=== PATIENT | female | born 1995 | race Caucasian/White ===

== ENCOUNTER → 2024-04-10 11:05 | Outpatient (REF) | payer BC, SELFPAY ==
[2024-04-10 13:07] LABS: % Basophils 0.9 % (0-2); % Eosinophils 0.4 % (0-6); % Immature Granulocytes 0.6 % (0-0.5); % Lymphocytes 33.3 % (20.5-51.1); % Monocytes 7.8 % (1.7-9.3); Absolute Basophils 0.1 10^3/uL (0-0.2); Absolute Lymphocytes 2.3 10^3/uL (1.2-3.4); Absolute Monocytes 0.5 10^3/uL (0.1-0.6); Absolute Neutrophils 3.9 10^3/uL (1.4-6.5); Hematocrit 41.4 % (37.0-47.0); Hemoglobin 13.9 g/dL (12.0-16.0); Mean Corp Hgb Conc. 33.6 g/dL (33.0-37.0); Mean Corpuscular Hgb 29.8 pg (27.0-31.0); Mean Corpuscular Volume 88.7 fL (81.0-99.0); Mean Platelet Volume 10.1 fL (7.4-10.4); Nucleated Red Blood Cells % 0 %; Platelet Count 375 10^3/uL (130-400); Red Blood Cell Count 4.67 10^6/uL (4.20-5.40); Red Cell Dist. Width 12.4 % (11.5-14.5); White Blood Cell Count 6.9 10^3/uL (4.8-10.8)
[2024-04-10 13:16] LABS: ALT (SGPT) 22 U/L (0-35); AST (SGOT) 23 U/L (14-36); Albumin 4.8 g/dl (3.5-5.0); Alkaline Phosphatase 44 U/L (38-126); Blood Urea Nitrogen 12 mg/dl (7-17); Carbon Dioxide 25 mmol/L (22-30); Chloride 104 mmol/L (98-107); Glucose 98 mg/dl (70-99); Potassium 4.4 mmol/L (3.5-5.1); Sodium 139 mmol/L (135-145); Total Bilirubin 0.3 mg/dl (0.2-1.3); Total Protein 7.7 g/dl (6.3-8.2); eGFR > 60.00
[2024-04-10 13:19] LABS: C-Reactive Protein < 5.00 mg/L (0.0-10.00)
[2024-04-10 13:46] LABS: Erythrocyte Sed Rate 4 mm/hour (0-20)
[2024-04-10 13:50] LABS: TSH Reflex To Free T4 1.26 uIU/ml (0.47-4.68)
== END ==
LOC: HWLAB 11:05
PROVIDERS: ATTENDING PHYSICIAN Nurse Practitioner Adult Health
DX: R51.9 Headache, unspecified (principal); H53.9 Unspecified visual disturbance; R07.89 Other chest pain; R45.89 Other symptoms and signs involving emotional state
CPT/HCPCS: 36415; 80053; 84443; 85025; 85652; 86140